=== PATIENT | female | born 1950 | race Caucasian/White ===

== ENCOUNTER 2020-07-23 07:29 | Outpatient (CLI) | payer OTHER | END 2020-07-23 07:35 | disposition home or self-care (01) | LOC: MRI 07:29 | PROVIDERS: ATTEND Internal Medicine Gastroenterology | DX: R10.84 Generalized abdominal pain (principal); R10.13 Epigastric pain | CPT/HCPCS: C8902; A9575; 74185 ==

== ENCOUNTER 2020-08-28 09:41 | Outpatient (CLI) | payer OTHER | END 2020-08-28 09:42 | disposition home or self-care (01) | LOC: NUCLEAR 09:41 | PROVIDERS: ATTEND Psychiatry & Neurology Neurology | DX: I73.9 Peripheral vascular disease, unspecified (principal); I87.2 Venous insufficiency (chronic) (peripheral) ==

== ENCOUNTER 2021-08-19 10:57 | Outpatient (CLI) | payer OTHER | END 2021-08-19 11:07 | disposition home or self-care (01) | LOC: MAMO-SONO 10:57 | PROVIDERS: ATTEND Family Medicine | DX: N63.0 Unspecified lump in unspecified breast (principal); N64.4 Mastodynia ==

== ENCOUNTER 2022-01-28 11:20 | Outpatient (CLI) | payer OTHER | END 2022-01-28 11:30 | disposition home or self-care (01) | LOC: RAD 11:20 | PROVIDERS: ATTEND Family Medicine | DX: R10.84 Generalized abdominal pain (principal); M25.551 Pain in right hip; M25.552 Pain in left hip ==

== ENCOUNTER 2025-01-31 10:37 | Outpatient (CLI) | payer OTHER | END 2025-01-31 10:40 | disposition home or self-care (01) | LOC: SONOGRAMA 10:37 | PROVIDERS: ATTEND Urology | DX: R31.0 Gross hematuria (principal) ==